=== PATIENT | female | born 1950 | race Caucasian/White ===

== ENCOUNTER 2016-11-12 20:31 | Emergency (ER) | payer BC ==
[~2016-11-12] VITALS: Ht 160 cm; Wt 74.8 kg
[2016-11-12] MEDS ORDERED: METOCLOPRAMIDE HCL 10 MG/2 ML VIAL ONE (21:19)
[2016-11-12] MEDS ORDERED: MORPHINE SULFATE INJ 4 MG/ML DISP.SYRIN ONE ×2 (21:20→22:27)
[2016-11-12] MEDS ORDERED: METOCLOPRAMIDE HCL 10 MG/2 ML VIAL IM ONE (21:30)
[2016-11-12] MEDS ORDERED: MORPHINE SULFATE INJ 2 MG/ML DISP.SYRIN IM ONE ×2 (21:30→22:30)
[2016-11-12 23:00] VITALS: BP 120/88
== END 2016-11-12 23:03 | disposition home or self-care (01) ==
LOC: ER 20:34
DX: M06.9 Rheumatoid arthritis, unspecified (principal); M79.671 Pain in right foot; I45.0 Right fascicular block; F32.9 Major depressive disorder, single episode, unspecified; Z88.0 Allergy status to penicillin; Z88.1 Allergy status to other antibiotic agents; Z88.8 Allergy status to other drugs, medicaments and biological substances
CPT/HCPCS: 73630; 96372 ×3; 99284; A4606; J2270 ×2; J2765; Z7610

== ENCOUNTER 2017-01-28 10:39 | Inpatient (IN) | payer BC ==
[~2017-01-28] VITALS: Ht 154.9 cm; Wt 62.1 kg
--- NOTE | 2017-01-28 11:10 | NUR ---
PT CAME IN FOR BILATERAL WRIST REDNESS AND SWELLING. NAD NOTED. ALSO COMPLAINS OF LEFT KNEE PAIN. UNABLE TO MOVE MUCH. DENIES TRAUMA. VSS. SAFETY AND COMFORT MEASURES PROVIDED. WILL MONITOR.
[2017-01-28 11:14] LABS: BASOPHILS # (AUTO) 0.1 /CMM (0.0-0.2); BASOPHILS % (AUTO) 0.6 % (0.0-2.0); HEMATOCRIT 39 % (33-45); HEMOGLOBIN 12.5 g/dL (11.5-14.8); LYMPHOCYTES # (AUTO) 1.5 /CMM (0.8-4.8); LYMPHOCYTES % (AUTO) 12.1 % (20.0-44.0); MEAN CORPUSCULAR HEMOGLOBIN 28 PG (26.0-33.0); MEAN CORPUSCULAR HGB CONC 32 g/dl (31.0-36.0); MEAN CORPUSCULAR VOLUME 88 fL (82-100); MONOCYTES # (AUTO) 0.8 /CMM (0.1-1.30); MONOCYTES % (AUTO) 6.3 % (2.0-12.0); NEUTROPHILS # (AUTO) 10.2 /CMM (1.8-8.9); PLATELET COUNT (AUTO) 269 /CMM (150-450); RDW COEFFICIENT OF VARIATION 16.3 (11.5-15.0); RED BLOOD CELL COUNT(AUTO) 4.42 MIL/uL (4.0-5.2); WHITE BLOOD COUNT (AUTO) 12.6 K/uL (4.3-11.0)
[2017-01-28 11:18] LABS: CALCIUM, SERUM 9.4 mg/dL (8.5-10.1); CARBON DIOXIDE 24 mmol/L (21-32); CHLORIDE 99 mmol/L (98-107); CREATININE 0.7 mg/dL (0.6-1.3); GFR 84 mL/min (>60); GLUCOSE 118 mg/dL (74-106); POTASSIUM 3.9 mmol/L (3.5-5.1); SODIUM SERUM 135 mmol/L (136-145); UREA NITROGEN, BLOOD 9 mg/dL (7-18)
[2017-01-28 11:23] LABS: INR 1.1 (0.87-1.13); PROTHROMBIN TIME 11.5 SECS (9.5-12.7)
[2017-01-28 11:24] LABS: ALANINE AMINOTRANSFERASE 18 U/L (12-78); ALBUMIN 3.1 g/dL (3.4-5.0); ALKALINE PHOSPHATASE 105 U/L (46-116); ASPARTATE AMINOTRANSFERASE 18 U/L (15-37); BILIRUBIN,DIRECT 0.2 mg/dL (0.0-0.2); BILIRUBIN,TOTAL 0.9 mg/dL (0.2-1.0); TOTAL PROTEIN, SERUM 7.7 g/dL (6.4-8.2)
[2017-01-28 11:27] LABS: TROPONIN I < 0.017 ng/mL (0.00-0.056)
--- NOTE | 2017-01-28 11:50 | NUR ---
CALLED NURSING SUP. FOR MS BED
[2017-01-28] MEDS ORDERED: HYDR-552 PO (11:57)
[2017-01-28] MEDS ORDERED: CIPROFLOXACIN IV RTU 200 ML IV ONE (11:57)
[2017-01-28] MEDS ORDERED: LITH300T PO (11:57)
[2017-01-28] MEDS ORDERED: ALPR0.5T PO (11:57)
[2017-01-28] MEDS ORDERED: VILA10TA PO (11:57)
[2017-01-28] MEDS ORDERED: IV SET PRIMARY PUMP SET 1 EA INFUS.SET MC ONE ×2 (11:58→12:00)
[2017-01-28] MEDS ORDERED: CIPROFLOXACIN IV RTU 400 MG in PREMIX 1 EA IV SCH (12:00)
[2017-01-28] MEDS ORDERED: VANCOMYCIN 1 GM in IV D5W 250 ML IV ONE (12:00)
[2017-01-28 12:14] LABS: APPEARANCE,URINE Clear (CLEAR); BILIRUBIN,URINE Negative (NEGATIVE); BLOOD, URINE Large Ery/uL (NEGATIVE); COLOR,URINE Yellow (YELLOW); KETONES,URINE 40 (NEGATIVE); LEUKOCYTE ESTERASE ,URINE Negative (NEGATIVE); NITRITE, URINE Negative (NEGATIVE); PROTEIN,URINE 30 mg/dl (NEGATIVE); UGLUCOSE Negative (NEGATIVE); UROBILINOGEN,URINE 0.2 EU/dL (0.2)
[2017-01-28 12:25] LABS: ADD URINE CULTURE NO; BACTERIA,URINE Few /HPF (None Seen); SQUAMOUS EPITHELIAL CELL,UR Few /HPF (None Seen)
--- NOTE | 2017-01-28 13:42 | NUR ---
PANEL ON-CALL PAGED
[2017-01-28] MEDS ORDERED: ONDANSETRON HCL/PF 4 MG/2 ML VIAL ONE (14:09)
[2017-01-28] MEDS ORDERED: MORPHINE SULFATE INJ 4 MG/ML DISP.SYRIN ONE (14:09)
--- NOTE | 2017-01-28 14:24 | NUR ---
MS IRENE NOTES RECEIVED REPORT ON PATIENT Addendum: 01/28/17 at 1427 by TA BALLARD RN INCORRECT PATIENT
[2017-01-28] MEDS ORDERED: methylPREDNISolone SOD SUCC 125 MG/2ML VIAL IV ONE (14:30)
[2017-01-28] MEDS ORDERED: MORPHINE SULFATE INJ 2 MG/ML DISP.SYRIN IV ONE (14:30)
[2017-01-28] MEDS ORDERED: ONDANSETRON HCL/PF 4 MG/2 ML VIAL IVP ONE (14:30)
[2017-01-28] MEDS ORDERED: methylPREDNISolone SOD SUCC 125 MG/2ML VIAL ONE (14:42)
--- NOTE | 2017-01-28 14:51 | NUR ---
REPORT GIVEN TO TA IRENE FOR MS ROOM 309
--- NOTE | 2017-01-28 14:53 | NUR ---
MS RN NOTES RECEIVED REPORT FROM JUSTIN IRENE
[2017-01-28 15:00] VITALS: BP 128/68
--- NOTE | 2017-01-28 15:00 | NUR ---
MS RN OPENING RECEIVED PATIENT A/OX4 DENIES SOB DIFFICULTY BREATHING STATES PAIN IS BETTER SINCE PAIN MEDICATIONS. PATIENT STATES NO NEEDS AT THIS TIME. RAILS UPX3 FOR SAFETY BED ALARM ON AND WILL ROUND Q2H OR LESS PER NEEDS. MD AWARE OF ADMISSION
[2017-01-28] MEDS ORDERED: IV NS 0.9% 1,000 ML IV PRN (15:24)
[2017-01-28] MEDS ORDERED: Z GUARD REMEDY 2 OZ OINT TP PRN (15:30)
[2017-01-28] MEDS ORDERED: MAGNESIUM HYDROXIDE 30 ML UDC PO PRN (15:30)
[2017-01-28] MEDS ORDERED: ACETAMINOPHEN 325 MG TABLET PO PRN (15:30)
[2017-01-28] MEDS ORDERED: MAG HYDROX/AL HYDROX/SIMETH 30 ML UDC PO PRN (15:30)
[2017-01-28] MEDS ORDERED: HYDROCODONE/APAP 5/325MG 1 EACH TABLET PO PRN ×2 (15:30→16:00)
[2017-01-28] MEDS ORDERED: ONDANSETRON HCL/PF 4 MG/2 ML VIAL IVP PRN (15:30)
[2017-01-28 16:00] VITALS: BP 120/58
[2017-01-28] MEDS ORDERED: ALPRAZOLAM 0.5 MG TABLET PO PRN (16:00)
--- NOTE | 2017-01-28 16:35 | NUR ---
MS RN NOTES NON ADMIN SOLUMEDROL IT WAS GIVEN AT 1430 IN ER
[2017-01-28] MEDS ORDERED: methylPREDNISolone SOD SUCC 125 MG/2ML VIAL IV SCH (17:00)
--- NOTE | 2017-01-28 18:57 | NUR ---
MS RN NOTES REPORT CALLED TO MARCELINO IRENE AT [facility]
--- NOTE | 2017-01-28 19:32 | NUR ---
MS HOTEL LOBBY CONCIERGE PATIENT STABLE NO COMPLICATIONS THROUGHOUT DAY. PATIENT AWARE AND EDUCATED ON TRANSFER AND IS AGREEABLE. ALL DISCHARGE SIGNED AND UNDERSTOOD. BELONGINGS LIST SIGNED AND ALL ACCOUNTED FOR. IV IN PLACE FOR [facility]SF[facility] TO [facility]. PATIENT LEAVING IN STABLE CONDITION. REPORT ALREADY CALLED TO MARCELINO IRENE FOR SHAUN. ALL NEEDS MET. PATIENT LEFT IN CARE OF EMT
[2017-01-28] MEDS ORDERED: LITHIUM CARBONATE 150 MG CAPSULE PO SCH (22:00)
[2017-01-29] MEDS ORDERED: PANTOPRAZOLE 40 MG TABLET.DR PO SCH (07:30)
[2017-01-29] MEDS ORDERED: Medication Not On Formulary EA (Vilazodone Hydrochloride (Viibryd) 20 MG) PO SCH (09:00)
== END 2017-01-28 19:30 | disposition short-term general hospital (02) | DRG 547 ==
LOC: ER 10:43 → MED 13:50
PROVIDERS: ADMIT Contractor; ATTEND Contractor
DX: M06.9 Rheumatoid arthritis, unspecified (principal); D72.829 Elevated white blood cell count, unspecified; E88.09 Other disorders of plasma-protein metabolism, not elsewhere classified; F32.9 Major depressive disorder, single episode, unspecified
CPT/HCPCS: 36415; 71010-TC; 80048-TC; 80076-TC; 81000-TC; 83605-TC; 84484-TC; 85025-TC; 85652-TC; 85730-TC; 86140-TC; 87040-TC; 87081-TC; 87086-TC; A4216; A4606; J0744; J2270; J2405; J2930; J3370; J7060; Z7610